=== PATIENT | female | born 1970 | race Caucasian/White ===

== ENCOUNTER 2019-11-05 12:52 | Inpatient (IN) | payer BC ==
[~2019-11-05] VITALS: Ht 162.6 cm; Wt 88.1 kg
[2019-11-05 13:05] VITALS: BP 154/90
[2019-11-05] MEDS ORDERED: VANCOMYCIN PER PHARMACY MC PRN (14:15)
[2019-11-05 14:56] LABS: HEMATOCRIT 36.6 % (36.0-47.0); HEMOGLOBIN 12.1 g/dL (12.0-15.5); RED BLOOD COUNT 3.78 x10^6/uL (3.50-5.40); RED CELL DISTRIBUTION WIDTH 13.4 % (11.5-14.5); WHITE BLOOD COUNT 6.5 x10^3/uL (4.0-11.0)
[2019-11-05] MEDS ORDERED: VANCOMYCIN 2 GM in IV NORMAL SALINE 500ML 500 ML IV ONE (15:00)
[2019-11-05 15:04] LABS: ALBUMIN 2.3 g/dL (3.4-5.0); ALBUMIN/GLOBULIN RATIO 0.5 (1.0-1.7); CALCIUM 9.7 mg/dL (8.5-10.1); GFR 59.4; POTASSIUM 3.9 mmol/L (3.5-5.1); TOTAL BILIRUBIN 0.2 mg/dL (0.2-1.0)
[2019-11-05] MEDS ORDERED: OXYC-325 PO (15:04)
[2019-11-05] MEDS ORDERED: FENO145T3 PO (15:15)
[2019-11-05] MEDS ORDERED: HYDR-2145 PO (15:43)
[2019-11-05] MEDS ORDERED: INSU200I SQ (15:43)
[2019-11-05] MEDS ORDERED: ONDANSETRON ODT 4 MG TAB.RAPDIS PO PRN (15:45)
[2019-11-05] MEDS ORDERED: DEXTROSE 50% 25 GM / 50ML DISP.SYRIN. IV PRN (15:45)
[2019-11-05] MEDS ORDERED: CRESTOR20 MG PO (15:48)
[2019-11-05] MEDS ORDERED: VERA240C2 PO (15:48)
[2019-11-05] MEDS ORDERED: ONDA4TAB12 PO (15:48)
--- NOTE | 2019-11-05 16:04 | RAD ---
Sonography of the left groin Clinical indications: Left groin abscess which is packed with gauze. FINDINGS: High-resolution sonography of the area of clinical concern of the left groin was performed. There is an area of shadowing related to the gauze packing. Otherwise no prominent fluid collection is seen. Edema is present. IMPRESSION: No prominent fluid collection is seen in the area of clinical concern. Electronically signed by: Jaiden James MD (11/05/2019 4:01 PM) [facility] [place]
[2019-11-05] MEDS: oxyCODONE/APAP 5/325 1 TAB TABLET PO PRN ×2 (16:08→22:07)
[2019-11-05 16:29] VITALS: BP 158/87
[2019-11-05] MEDS ORDERED: INSULIN LISPRO 6 UNIT SQ SCH (17:00)
[2019-11-05] MEDS: INSULIN LISPRO 300 UNITS/3 ML VIAL. SQ SCH ×2 (17:57→21:20)
[2019-11-05] MEDS ORDERED: PIPERACILLIN/TAZOBACTAM 3.375 GM in IV NORMAL SALINE 50ML 50 ML IV SCH (18:00)
[2019-11-05] MEDS ORDERED: INSU100V8 SQ (18:57)
[2019-11-05 21:00] VITALS: BP 127/77
[2019-11-05] MEDS ORDERED: NON FORMULARY ITEM (Rosuvastatin Calcium (Crestor) 20 MG) PO SCH (21:00)
[2019-11-05] MEDS: ATORVASTATIN CALCIUM 20 MG TABLET PO SCH (21:19)
[2019-11-05] MEDS: diphenhydrAMINE HCL 25 MG CAPSULE PO PRN (21:19)
[2019-11-05] MEDS: INSULIN GLARGINE SYRINGE. SQ SCH (21:23)
[2019-11-05] MEDS: MEROPENEM 1 GM in IV NORMAL SALINE 100ML 100 ML IV SCH (22:08)
[2019-11-05 23:30] VITALS: BP 136/71
[2019-11-06] MEDS: MEROPENEM 1 GM in IV NORMAL SALINE 100ML 100 ML IV SCH ×3 (05:14→21:31)
[2019-11-06 06:00] VITALS: BP 148/77
[2019-11-06] MEDS: VANCOMYCIN 1.25 GM in IV NORMAL SALINE 250ML 250 ML IV SCH ×2 (06:00→17:45)
[2019-11-06 06:29] LABS: HEMATOCRIT 34.2 % (36.0-47.0); HEMOGLOBIN 11.4 g/dL (12.0-15.5); RED BLOOD COUNT 3.53 x10^6/uL (3.50-5.40); RED CELL DISTRIBUTION WIDTH 13.6 % (11.5-14.5); WHITE BLOOD COUNT 4.5 x10^3/uL (4.0-11.0)
[2019-11-06 06:44] LABS: ALBUMIN 1.9 g/dL (3.4-5.0); ALBUMIN/GLOBULIN RATIO 0.5 (1.0-1.7); CALCIUM 8.4 mg/dL (8.5-10.1); GFR 59.4; POTASSIUM 3.2 mmol/L (3.5-5.1); TOTAL BILIRUBIN 0.2 mg/dL (0.2-1.0)
[2019-11-06] MEDS ORDERED: POTASSIUM CHLORIDE 20 MEQ TABLET.ER. PO ONE (07:30)
[2019-11-06] MEDS: hydroCHLOROthiazide 25 MG TABLET PO SCH (08:10)
[2019-11-06] MEDS: VERAPAMIL SR 120 MG TABLET.ER. PO SCH (08:11)
[2019-11-06] MEDS: MULTIVITAMIN with MINERAL TABLET. PO SCH (08:11)
[2019-11-06] MEDS: ASCORBIC ACID 500 MG TABLET PO SCH (08:11)
[2019-11-06] MEDS: FENOFIBRATE NANOCRYSTALLIZED 145 MG TABLET PO SCH (08:11)
[2019-11-06] MEDS: INSULIN LISPRO 300 UNITS/3 ML VIAL. SQ SCH ×7 (08:12→20:22)
[2019-11-06] MEDS: oxyCODONE/APAP 5/325 1 TAB TABLET PO PRN ×3 (08:16→22:07)
[2019-11-06] MEDS ORDERED: VERAPAMIL HCL PO SCH (09:00)
[2019-11-06 10:16] VITALS: BP 129/78
[2019-11-06] MEDS: diphenhydrAMINE HCL 25 MG CAPSULE PO PRN ×2 (10:33→20:18)
[2019-11-06 15:46] VITALS: BP 116/67
[2019-11-06 18:30] VITALS: BP 129/72
[2019-11-06 20:01] VITALS: BP 138/73
--- NOTE | 2019-11-06 20:06 | PN ---
DATE: 11/06/2019 SUBJECTIVE: The patient is resting, slightly propped up in bed, in no apparent respiratory distress. She is awake, alert. She denied any complaint, in particular denied any fever, chills or rigors. Her wound was seen by the wound care team and the pack team. They packed the wound this morning. Apparently, the wound was cleansed and assessed, redressed with iodoform packing, ABD pad and tape and they recommended change the dressing daily. We did actually ultrasound yesterday, which basically showed no prominent fluid collection seen in the area of clinical concern and therefore, we will continue with IV vancomycin and meropenem and hopefully switch her tomorrow to Rocephin and she can be discharged home to continue as an outpatient after placement of PICC line. PHYSICAL EXAMINATION: GENERAL: When I saw her today, she looked well and was clearly in no apparent respiratory distress. No pallor, jaundice, cyanosis or thyromegaly. No jugular venous distention. No lower limb edema. VITAL SIGNS: Her heart rate was 73, blood pressure was 129/78, temperature was 97.6, respiratory rate was 18 and oxygen saturation was 93%. The wound is covered with dressing. EXTREMITIES: There is mild surrounding erythema and induration. Her intake was 1613. No output was recorded. LABORATORY DATA: Her lab work this morning showed a white cell count 4500, hemoglobin 11, hematocrit 34, MCV 97, platelet count of 121,000. Her chemistry showed a serum sodium 137, potassium 3.2, chloride 100, bicarbonate 28, anion gap of 9, BUN 13, creatinine 1, estimated GFR was 59 mL per minute. Her glucose was 277, calcium was 8.4. Total bilirubin, AST, ALT, alkaline phosphatase were normal. Total protein was 6, albumin was 1.9. ASSESSMENT: Left groin abscess, status post incision and drainage. Other medical problems include hypertension, hyperlipidemia and type 2 diabetes mellitus. PLAN: To continue with IV vancomycin as well as meropenem. We will arrange for her to have a PICC line tomorrow. We will switch her to Rocephin and can be discharged to be treated as an outpatient. ROSIBEL MARAVILLA MD DR: ESTUARDO/trever JOB#: [id number] / [id number]
[2019-11-06] MEDS: ATORVASTATIN CALCIUM 20 MG TABLET PO SCH (20:18)
[2019-11-06] MEDS: INSULIN GLARGINE SYRINGE. SQ SCH (20:22)
[2019-11-06 22:08] VITALS: BP 130/72
[2019-11-07] MEDS: oxyCODONE/APAP 5/325 1 TAB TABLET PO PRN ×2 (04:42→13:47)
[2019-11-07] MEDS: MEROPENEM 1 GM in IV NORMAL SALINE 100ML 100 ML IV SCH ×2 (05:25→13:47)
[2019-11-07 06:17] VITALS: BP 134/78
[2019-11-07 06:30] LABS: CALCIUM 7.9 mg/dL (8.5-10.1); CREATININE 0.9 mg/dL (0.6-1.0); GFR 67.1; POTASSIUM 3.5 mmol/L (3.5-5.1)
[2019-11-07 06:35] LABS: VANC TR 10.8 mcg/mL (10.0-20.0)
[2019-11-07] MEDS: VANCOMYCIN 1.25 GM in IV NORMAL SALINE 250ML 250 ML IV SCH (06:55)
[2019-11-07] MEDS: LACTOBACILLUS RHAMNOSUS GG 1 CAPSULE. PO SCH ×2 (08:05→21:50)
[2019-11-07] MEDS: hydroCHLOROthiazide 25 MG TABLET PO SCH (08:05)
[2019-11-07] MEDS: FENOFIBRATE NANOCRYSTALLIZED 145 MG TABLET PO SCH (08:05)
[2019-11-07] MEDS: ASCORBIC ACID 500 MG TABLET PO SCH (08:06)
[2019-11-07] MEDS: VERAPAMIL SR 120 MG TABLET.ER. PO SCH (08:06)
[2019-11-07] MEDS: MULTIVITAMIN with MINERAL TABLET. PO SCH (08:06)
[2019-11-07] MEDS: INSULIN LISPRO 300 UNITS/3 ML VIAL. SQ SCH ×7 (08:11→21:55)
[2019-11-07 10:40] VITALS: BP 128/75
[2019-11-07 14:32] VITALS: BP 138/76
[2019-11-07] MEDS ORDERED: IOHEXOL 300 MG/ML 75 ML VIAL. IV ONE (15:00)
[2019-11-07] MEDS ORDERED: CONTRAST GIVEN MC PRN (15:00)
[2019-11-07] MEDS: diphenhydrAMINE HCL 25 MG CAPSULE PO PRN (17:03)
--- NOTE | 2019-11-07 17:59 | RAD ---
CT study of the pelvis with contrast Clinical indications: Abscess of the left groin. TECHNIQUE: After IV infusion of 75 cc of Omnipaque 300, helical CT scanning of the pelvis was performed. No GI contrast was administered. This may decrease the sensitivity to detect GI tract pathology. PQRS compliance Statement One or more of the following individualized dose reduction techniques were utilized for this study: 1. Automated exposure control 2. Adjustment of the mA and/or kV according to patient size 3. Use of iterative reconstruction technique COMPARISON: September 21, 2011. FINDINGS: There is focal round area of subcutaneous soft tissue thickening measuring about 5.5 cm in greatest dimension within the left groin. Within the superficial area of this soft tissue thickening, radiopaque gauze is seen within a superficial wound. There is no liquefaction in this area and therefore no abscess is seen. This is consistent with inflammatory mass given the patient's history. Certainly, a soft tissue neoplasm cannot be excluded. There is upper thigh subcutaneous soft tissue edema present. No round fluid collection with peripheral rim enhancement is seen and therefore no abscess is evident. There are some mild reactive left inguinal lymph nodes present. There is subcutaneous soft tissue edema of the anterior abdominal wall of the pelvis. This could represent cellulitis or be related to anasarca if there is a history of CHF or fluid overload. No lytic process is seen. Therefore no osteomyelitis is seen. No prominent left hip joint effusion is seen. The urinary bladder wall is smooth. There is a cyst of the left ovary which measures 3.4 cm. No bowel wall thickening or pericolonic inflammatory change is seen. Mild sigmoid diverticulosis is seen without diverticulitis. The appendix is visualized and is normal. No obstructive bowel pattern is evident. No free air or free fluid or mesenteric edema is seen within the pelvis. There is a supraumbilical hernia containing only fat measuring 4.3 cm in size. IMPRESSION: 5.5 cm inflammatory mass of the left groin in association with superficial gauze packing. No liquefaction or abscess is seen here. There is soft tissue edema circumferentially involving the upper left thigh which could be due to cellulitis. There is anterior abdominal wall inflammation which could be due to cellulitis or anasarca if this history of CHF or fluid overload. 3.4 cm left ovarian cyst. Reactive left groin lymphadenopathy. Supraumbilical midline abdominal hernia containing only fat. Electronically signed by: Jaiden James MD (11/07/2019 5:55 PM) [id number]
[2019-11-07] MEDS ORDERED: ACETAMINOPHEN 325 MG TABLET PO PRN (18:45)
[2019-11-07 19:30] VITALS: BP 111/71
[2019-11-07] MEDS: ATORVASTATIN CALCIUM 20 MG TABLET PO SCH (21:50)
[2019-11-07] MEDS: INSULIN GLARGINE SYRINGE. SQ SCH (21:56)
[2019-11-07 22:20] VITALS: BP 116/78
--- NOTE | 2019-11-08 00:46 | PN ---
DATE: SUBJECTIVE: The patient is a 49-year-old female patient who was seen originally at [facility] Emergency Room with an abscess in her left groin that was incised and drained. The culture was grown gram-positive cocci in pairs identified as beta hemolytic streptococci group B. She is allergic to PENICILLIN and therefore we started her on IV meropenem and vancomycin. She has had her PICC line placed and we will switch her to Rocephin and she can be discharged tomorrow home to come as an outpatient on a daily basis together with obviously change the daily dressing and packing. PHYSICAL EXAMINATION: GENERAL: When I saw her today, she looked well and was clearly in no apparent respiratory distress. No pallor, jaundice, cyanosis or thyromegaly. No jugular venous distention. No limb edema. VITAL SIGNS: Her heart rate was 85, blood pressure 138/76, temperature was 98.1, respiratory rate was 18 and oxygen saturation was 95% on room air. HEAD, EYES, EARS, NOSE AND THROAT: Showed normocephalic, atraumatic. NECK: Supple. HEART: Showed normal first and second heart sounds. No gallop or murmur. CHEST: Clear to auscultation. No crepitation or rhonchi. ABDOMEN: Distended, soft, nontender. No guarding or rigidity. No organomegaly. All hernial orifice intact. Bowel sounds normal. NEUROLOGIC: She is awake, alert, responding appropriately. All cranial nerves intact. She moves extremities without difficulty. She ambulates without assistance or assistive devices. Her intake was 1630. No output was recorded. LABORATORY DATA: Her lab work showed a white cell count of 4500, hemoglobin 11.4, hematocrit 34, MCV 97 and platelet count of 121,000. Her chemistry this morning showed a serum sodium of 139, potassium 3.5, chloride 103, bicarbonate 30, anion gap of 6, BUN 12, creatinine 0.9, estimated GFR was 67 mL per minute. Her glucose was 201, calcium was 7.9. ASSESSMENT: Left groin abscess, status post incision and drainage. The culture grew beta-hemolytic Streptococcus group B for which we will switch her now to IV Rocephin after establishment of a PICC line. OTHER MEDICAL PROBLEMS: Include: A. Hypertension. B. Hyperlipidemia. C. Type 2 diabetes mellitus. I will repeat her lab works tomorrow and if she has no untoward side effects from the Rocephin, she can come as an outpatient on a daily basis for 10 days. ROSIBEL MARAVILLA MD DR: ESTUARDO/trever JOB#: [id number] / [id number]
[2019-11-08 05:33] VITALS: BP 149/75
[2019-11-08 07:02] LABS: HEMATOCRIT 35.6 % (36.0-47.0); HEMOGLOBIN 11.8 g/dL (12.0-15.5); RED BLOOD COUNT 3.67 x10^6/uL (3.50-5.40); WHITE BLOOD COUNT 5.3 x10^3/uL (4.0-11.0)
[2019-11-08 07:21] LABS: ALBUMIN/GLOBULIN RATIO 0.5 (1.0-1.7); CALCIUM 8.4 mg/dL (8.5-10.1); CREATININE 0.8 mg/dL (0.6-1.0); GFR 76.9; POTASSIUM 3.7 mmol/L (3.5-5.1); TOTAL BILIRUBIN 0.1 mg/dL (0.2-1.0); TOTAL PROTEIN 5.9 g/dL (6.4-8.2)
[2019-11-08] MEDS: INSULIN LISPRO 300 UNITS/3 ML VIAL. SQ SCH ×4 (08:21→11:54)
[2019-11-08] MEDS: hydroCHLOROthiazide 25 MG TABLET PO SCH (08:23)
[2019-11-08] MEDS: ASCORBIC ACID 500 MG TABLET PO SCH (08:23)
[2019-11-08] MEDS: MULTIVITAMIN with MINERAL TABLET. PO SCH (08:23)
[2019-11-08] MEDS: LACTOBACILLUS RHAMNOSUS GG 1 CAPSULE. PO SCH (08:23)
[2019-11-08] MEDS: VERAPAMIL SR 120 MG TABLET.ER. PO SCH (08:24)
[2019-11-08] MEDS: FENOFIBRATE NANOCRYSTALLIZED 145 MG TABLET PO SCH (08:57)
[2019-11-08 11:42] VITALS: BP 142/77
[2019-11-08] MEDS ORDERED: CEFT2FRO2 IV (14:11)
--- NOTE | 2019-11-08 15:17 | DS ---
DATE OF DISCHARGE: 11/08/2019 HOSPITAL COURSE: The patient is a 49-year-old female patient. She was originally seen at [facility] and was diagnosed with left groin abscess that was incised and drained. The swabs were sent for culture and sensitivity and did not grow beta hemolytic streptococci group B. She is allergic to PENICILLIN; although she said that she was very young when she was told that she is allergic and she might have hives, but she is not sure. In any case, I started her on IV meropenem and vancomycin. She has had the PICC line placed successfully and we did switch her to Rocephin. She received her first dose yesterday without any problem. She will have the second dose today, Rocephin and will be discharged home to come as an outpatient for her Rocephin injection on a daily basis for a total of 10 days and she will also have daily dressing changes and packing of her wound. PHYSICAL EXAMINATION: GENERAL: When I saw her today, she was resting slightly propped up in bed, in no apparent respiratory distress. There were no pallor, jaundice, cyanosis, or thyromegaly. No jugular venous distension. No limb edema. VITAL SIGNS: Her heart rate was 92, blood pressure 142/77, temperature was 98.3, respiratory rate was 18 and oxygen saturation was 96%. HEAD, EYES, EARS, NOSE AND THROAT: Normocephalic, atraumatic. NECK: Supple. HEART: Showed normal first and second heart sounds. No gallop, rub or murmur. CHEST: Clear to auscultation. No crepitation or rhonchi. ABDOMEN: Distended, soft, nontender. NEUROLOGIC: She is awake, alert, responding appropriately. All cranial nerves intact. EXTREMITIES: She moves extremities without difficulty. She ambulates without assistance or assistive devices. Her intake was 1500, no output was recorded. LABORATORY DATA: This morning showed a serum sodium 142, potassium 3.7, chloride 104, bicarbonate 31, anion gap of 7, BUN 13, creatinine 0.8, estimated GFR was 77 mL per minute. Her glucose was 204, calcium was 8.4. Total bilirubin, AST, ALT, alkaline phosphatase were normal. Total protein was 5.9, albumin 2. Her white cell count was 5300, hemoglobin 11.8, hematocrit 35, MCV 97 and platelet count of 127,000. DISCHARGE MEDICATIONS: She was discharged home; to continue on: 1. Rocephin 2 g IV daily. 2. ____ fenofibrate 145 mg once a day. 3. Hydrochlorothiazide 25 mg once a day. 4. Lantus insulin 35 units subcutaneously at bedtime. 5. She is on insulin lispro 6 units before meals. 6. Ondansetron 4 mg every 8 hours. 7. Oxycodone 5/325 one tablet every 4 hours. 8. Crestor 20 mg at bedtime. 9. Verapamil 240 mg once a day. FINAL DISCHARGE DIAGNOSES: 1. Left groin abscess, status post incision and drainage with growth of beta hemolytic streptococci. 2. Type 2 diabetes mellitus. 3. Hypertension. 4. Hyperlipidemia. ROSIBEL MARAVILLA MD DR: ESTUARDO/trever JOB#: [id number] / [id number]
--- NOTE | 2019-11-08 15:18 | HP ---
ADMIT DATE: 11/05/2019 HISTORY OF PRESENT ILLNESS: The patient is a 49-year-old female patient who basically complained of what seemed to be like a boil in her left groin area that started on 10/30/2019. She was seen on in the Emergency Room of [facility] where she was found to have an abscess in the left groin that was incised and drained and the patient came back to our Emergency Room complaining of continued pain, swelling continues. She was admitted and we did start her on IV meropenem and linezolid. We did contact the [facility] and the culture has grown gram-positive cocci in pairs, identified as beta hemolytic Streptococcus group B. The patient was continued on IV antibiotic with a plan to put a PICC line, treated as an outpatient. PAST MEDICAL HISTORY: Significant for type 2 diabetes mellitus, hypertension, hyperlipidemia, and osteoarthritis. PAST SURGICAL HISTORY: Significant for sinus surgery x 2, cholecystectomy, . ALLERGIES: SHE IS ALLERGIC TO PENICILLIN AND METFORMIN. MEDICATIONS: She is currently on following medications: She is on fenofibrate 145 mg once a day, Crestor 20 mg at bedtime, verapamil 240 mg daily, oxycodone/APAP 5/325 one tablet every 4 hours, hydrochlorothiazide 25 mg once a day, ondansetron 8 mg every 8 hours, Lantus insulin 35 units at bedtime and Humalog insulin 6 units before meals. FAMILY HISTORY: She has 1 younger brother, still alive, at 44 years old. One sister, younger and 36-year-old, still alive. Her father is alive at age of 70, has myocardial infarction x 2, has PCI with stent deployment, peripheral vascular disease. Her mother is still alive and healthy. SOCIAL HISTORY: She is , has 1 daughter. She never smoked, does not drink alcohol or use any recreational drugs. 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 REVIEW OF SYSTEMS: As per history of present illness. PHYSICAL EXAMINATION: GENERAL: On arrival, she looked well and was clearly in no apparent respiratory distress. No pallor, jaundice, cyanosis or thyromegaly. No jugular venous distention. No limb edema. VITAL SIGNS: Her heart rate was 86, blood pressure 154/90, temperature was 98.9, respiratory rate was 20, and oxygen saturation was 95%. HEAD, EYES, EARS, NOSE AND THROAT: Normocephalic, atraumatic. NECK: Supple. CARDIAC: Normal first and second heart sounds. No gallop or murmur. CHEST: Clear to auscultation. No crepitation or rhonchi. ABDOMEN: Distended, soft, nontender. NEUROLOGIC: She is awake, alert, responding appropriately. All cranial nerves are intact. EXTREMITIES: She moves extremities without difficulty. Examination of the left groin area showed that she has large indurated area. The abscess was drained and the wound was packed with iodoform gauze. LABORATORY DATA: On admission showed a white cell count 6500, hemoglobin 12, hematocrit 36, MCV 97 and platelet count of 132,000. Her chemistry showed a serum sodium 135, potassium 3.9, chloride 97, bicarbonate 30, anion gap of 8, BUN 15, creatinine 1, estimated GFR was 59 mL per minute. Her glucose was 321, calcium was 9.7. Total bilirubin, AST, ALT, alkaline phosphatase were normal. Total protein was 7, albumin was 2.3. We did order ultrasound of the left groin area, which showed that there is an area of shadowing related to the gauze packing; otherwise, no prominent fluid collection is seen, edema is present. ASSESSMENT AND PLAN: The patient was started basically on meropenem and Zyvox as SHE IS ALLERGIC TO PENICILLIN. We will contact the [facility] regarding the result of the culture and sensitivity and we will adjust antibiotic accordingly. ROSIBEL MARAVILLA MD DR: ESTUARDO/trever JOB#: [id number] / [id number]
== END 2019-11-08 15:55 | disposition home or self-care (01) | DRG 603 ==
LOC: ICU 12:52 → 1 SOUTH 12:53
PROVIDERS: ADMIT Internal Medicine; ATTEND Internal Medicine
PROC: 05HY33Z Insertion of Infusion Device into Upper Vein, Percutaneous Approach (ICD-10-PCS; principal; 2019-11-06)
DX: L02.214 Cutaneous abscess of groin (principal); E11.9 Type 2 diabetes mellitus without complications; E78.5 Hyperlipidemia, unspecified; I10 Essential (primary) hypertension; Z82.49 Family history of ischemic heart disease and other diseases of the circulatory system; Z88.0 Allergy status to penicillin; M19.90 Unspecified osteoarthritis, unspecified site; Z88.8 Allergy status to other drugs, medicaments and biological substances
CPT/HCPCS: 36415; 72193; 76881; 80048; 80053; 80202; 82947; 85027; 87070; J0696; J1815; J2185; J3370; J7040; J7050; Q0163; Q9967

== ENCOUNTER 2021-01-23 20:51 | Emergency (ER) | payer BC ==
[~2021-01-23] VITALS: Ht 162.6 cm; Wt 89.1 kg
[~2021-01-23 20:51] MED LIST: CEFT2FRO2 IV; CRESTOR20 MG PO; FENO145T3 PO; HYDR-2145 PO; INSU100V8 SQ; INSU200I SQ; ONDA4TAB12 PO; OXYC-325 PO; VERA240C2 PO
[2021-01-23] MEDS ORDERED: ONDANSETRON PF 4 MG/2 ML VIAL. ONE (21:06)
[2021-01-23] MEDS ORDERED: ONDANSETRON PF 4 MG/2 ML VIAL. IVP ONE (21:30)
[2021-01-23 21:32] LABS: HEMATOCRIT 37.9 % (36.0-47.0); HEMOGLOBIN 12.8 g/dL (12.0-15.5); RED BLOOD COUNT 3.95 x10^6/uL (3.50-5.40); RED CELL DISTRIBUTION WIDTH 13.2 % (11.5-14.5); WHITE BLOOD COUNT 5.4 x10^3/uL (4.0-11.0)
[2021-01-23 21:34] LABS: CALCIUM 8.9 mg/dL (8.5-10.1); CREATININE 0.8 mg/dL (0.6-1.0); GFR 76.6; POTASSIUM 3.3 mmol/L (3.5-5.1)
[2021-01-23 21:40] LABS: ALBUMIN 2.6 g/dL (3.4-5.0); ALBUMIN/GLOBULIN RATIO 0.5 (1.0-1.7); TOTAL BILIRUBIN 0.6 mg/dL (0.2-1.0); TOTAL PROTEIN 7.5 g/dL (6.4-8.2)
--- NOTE | 2021-01-23 21:49 | RAD ---
PQRS Compliance Statement: One or more of the following individualized dose reduction techniques were utilized for this examinat ion: 1. Automated exposure control 2. Adjustment of the mA and/or kV according to patient size 3. Use of iterative reconstruction technique CT ABDOMEN+PELVIS WO Clinical Indication: Reason: left flank pain / Spl. Instructions: / History: Comparison: CT abdomen and pelvis with contrast September 21, 2011. CT pelvis with contrast 11/07/2019. Technique: Helical CT imaging of the abdomen and pelvis is performed without IV or oral contrast. Findings: Lung bases are clear. Cardiac size normal. The liver, spleen, pancreas, and adrenal glands are normal. Cholecystectomy. Abdominal aorta is cheko l caliber, minimal atherosclerotic calcification. The right kidney is normal. There is left perinephric stranding. There is mild left hydroureteronephr osis and periureteral stranding. The ureter is dilated to the ureterovesicular junction. A ureteral c alculus is not seen. A calculus in the urinary bladder is not identified. The stomach is unremarkable. There is a moderate-sized fat-containing supraumbilical hernia. There is no dilated small bowel. The appendix is normal. There is no colon wall thickening. No abdominal marco a opathy or free fluid. No urinary bladder wall thickening is seen. The uterus is anteverted. Small left ovary cyst. No pelvi c free fluid. No acute bone abnormality. Small sclerotic densities of the pelvis are stable. IMPRESSION: There is mild left hydroureteronephrosis and moderate perinephric and periureteral stranding. A urete ral calculus is not identified. Considerations include a recently passed calculus versus urinary trac t infection. Electronically signed by: Pérez Guerrier MD (01/23/2021 9:47 PM) [facility]
[2021-01-23 23:21] LABS: CLARITY,URINE HAZY; COLOR,URINE STRAW
[2021-01-23 23:22] LABS: BACTERIA,URINE MOD /HPF (0-FEW); BILIRUBIN,URINE NEG (NEG); GLUCOSE,URINE 500 mg/dL (NEG); NITRITE,URINE NEG (NEG); SQUAMOUS EPITHELIAL CELL,UR FEW /LPF; UROBILINOGEN,URINE 0.2 mg/dL (0.2 mg/dL)
[2021-01-23 23:23] LABS: YEAST,URINE PRESENT /HPF
[2021-01-23] MEDS ORDERED: KETOROLAC 15 MG/ML VIAL. IVP ONE (23:30)
[2021-01-23] MEDS ORDERED: CIPROFLOXACIN HCL 500 MG TABLET PO ONE (23:30)
[2021-01-23] MEDS ORDERED: MORPHINE SULFATE 4 MG/ML DISP.SYRIN. IV ONE (23:30)
[2021-01-23] MEDS ORDERED: HYDR-2155 PO (23:34)
[2021-01-23] MEDS ORDERED: CIPR500T94 PO ×2 (23:34→23:35)
--- NOTE | 2021-01-23 23:36 | PHYS DOC ---
Past History Past Medical History: Diabetes, Hypertension Past Surgical History: Cholecystectomy, , Other Additional Past Surgical Histo: ABSCESS ON LEG SX Alcohol Use: None Adult General Chief Complaint Chief Complaint: ABDOMINAL PAIN HPI HPI Patient is a 50-year-old female who presents to the emergency department with a chief complaint of left-sided flank pain for approximately 2 days, 7 out of 10, sharp in nature with some nausea but no vomiting. Denies any recent traumas, travel, fevers, chest pain, shortness of breath, other abdominal pain, dysuria, hematuria, blood in the stool or diarrhea. Denies any Covid/flu/cold symptoms. States he has been able to drink some fluids but does have a decreased appetite. States he had anything like this before. Denies any known ill contacts. States she has had urinary tract infections in the past. Review of Systems Review of Systems Review of systems otherwise unremarkable except noted in HPI Current Medications Current Medications Current Medications Medications (Trade) Dose Ordered Sig/Deshawn Start Time Stop Time Status Last Admin Dose Admin Fentanyl Citrate (Fentanyl 2ml Vial) 50 mcg 1X ONCE 01/23/21 21:00 01/23/21 21:01 DC 01/23/21 21:29 50 MCG Ondansetron HCl (Zofran) 4 mg 1X ONCE 01/23/21 21:30 01/23/21 21:31 DC 01/23/21 21:29 4 MG Allergies Allergies Allergies Coded Allergies Type Severity Reaction Last Updated Verified lisinopril Allergy Severe FACIAL SWELLING 11/05/19 Yes Penicillins Allergy Unknown 11/05/19 Yes metformin Allergy Unknown 11/05/19 Yes Physical Exam Physical Exam Constitutional: Well developed, well nourished, no acute distress, non-toxic appearance. [] HENT: Normocephalic, atraumatic, bilateral external ears normal, oropharynx moist, no oral exudates, nose normal. [] Eyes: conjunctiva normal, no discharge. [] Neck: Normal range of motion, no tenderness, supple, no stridor. [] Cardiovascular:Heart rate regular rhythm, no murmur [] Lungs & Thorax: Bilateral breath sounds clear to auscultation [] Abdomen: Bowel sounds normal, soft, no tenderness, no masses, no pulsatile masses. [] Skin: Warm, dry, no erythema, no rash. [] Back: Left CVA tenderness. [] Extremities: No tenderness, no cyanosis, no clubbing, ROM intact, no edema. [] Neurologic: Alert and oriented X 3, no focal deficits noted. [] Psychologic: Affect normal, judgement normal, mood normal. [] Current Patient Data Vital Signs Vital Signs Date Time Temp Pulse Resp B/P (MAP) Pulse Ox O2 Delivery O2 Flow Rate FiO2 01/23/21 21:10 98.1 90 18 181/103 (129) 97 Room Air Lab Results Laboratory Tests Test 01/23/21 21:13 01/23/21 22:25 01/23/21 22:31 White Blood Count 5.4 x10^3/uL (4.0-11.0) Red Blood Count 3.95 x10^6/uL (3.50-5.40) Hemoglobin 12.8 g/dL (12.0-15.5) Hematocrit 37.9 % (36.0-47.0) Mean Corpuscular Volume 96 fL (79-100) Mean Corpuscular Hemoglobin 32 pg (25-35) Mean Corpuscular Hemoglobin Concent 34 g/dL (31-37) Red Cell Distribution Width 13.2 % (11.5-14.5) Platelet Count 92 x10^3/uL (140-400) L Sodium Level 140 mmol/L (136-145) Potassium Level 3.3 mmol/L (3.5-5.1) L Chloride Level 99 mmol/L (98-107) Carbon Dioxide Level 30 mmol/L (21-32) Anion Gap 11 (6-14) Blood Urea Nitrogen 10 mg/dL (7-20) Creatinine 0.8 mg/dL (0.6-1.0) Estimated GFR (Cockcroft-Gault) 76.6 BUN/Creatinine Ratio 13 (6-20) Glucose Level 375 mg/dL (70-99) H Calcium Level 8.9 mg/dL (8.5-10.1) Total Bilirubin 0.6 mg/dL (0.2-1.0) Aspartate Amino Transferase (AST) 13 U/L (15-37) L Alanine Aminotransferase (ALT) 21 U/L (14-59) Alkaline Phosphatase 136 U/L (46-116) H Total Protein 7.5 g/dL (6.4-8.2) Albumin 2.6 g/dL (3.4-5.0) L Albumin/Globulin Ratio 0.5 (1.0-1.7) L Lipase 108 U/L (73-393) Urine Collection Type Unknown Urine Color Straw Urine Clarity Hazy Urine pH 7.0 Urine Specific [place] 1.015 Urine Protein >100 mg/dl (NEG-TRACE) Urine Glucose (UA) 500 mg/dL (NEG) Urine Ketones (Stick) Neg mg/dL (NEG) Urine Blood Mod (NEG) Urine Nitrite Neg (NEG) Urine Bilirubin Neg (NEG) Urine Urobilinogen Dipstick 0.2 mg/dL (0.2 mg/dL) Urine Leukocyte Esterase Trace (NEG) Urine RBC 6-10 /HPF (0-2) Urine WBC 5-10 /HPF (0-4) Urine Squamous Epithelial Cells Few /LPF Urine Bacteria Mod /HPF (0-FEW) Urine Yeast Present /HPF POC Urine HCG, Qualitative hcg negative (Negative) EKG EKG [] Radiology/Procedures Radiology/Procedures [] Heart Score C/O Chest Pain: No Risk Factors: Risk Factors: DM, Current or recent (<one month) smoker, HTN, HLP, family history of CAD, obesity. Risk Scores: Risk Factors: DM, Current or recent (<one month) smoker, HTN, HLP, family history of CAD, obesity. Course & Med Decision Making Course & Med Decision Making Patient is a 50-year-old female presents with left-sided flank pain for a couple of days associated with nausea Vital signs notable for hypertension. Physical exam noted above. Patient placed on the monitor. Given IV pain medicine. Laboratory analysis not concerning. Urinalysis notable for bacteria and leukocyte esterase with some blood. CT notable for mild left hydroureteronephrosis and perinephric and periureteral stranding he does have a possible passed stone versus UTI. Given patient's urinary frequency, urinalysis she was started on antibiotics in the emergency department. Given some pain medication for home. Advised to follow-up with primary care first thing Tuesday morning. Gave return precautions to the ED. Patient grateful, verbalized understanding and agreed with plan of discharge. [] Dragon Disclaimer Dragon Disclaimer This electronic medical record was generated, in whole or in part, using a voice recognition dictation system. Departure Departure: Impression: Primary Impression: Flank pain Additional Impressions: Pyelonephritis Hydroureteronephrosis Disposition: 01 HOME / SELF CARE / HOMELESS Condition: GOOD Referrals: ELIANA VERA (PCP) Patient Instructions: Pyelonephritis, Adult, [id number] Additional Instructions: Please read all of the attached information very carefully. Your CT scan and urinalysis are suggestive of either a past kidney stone or a kidney infection. You are started on antibiotics in the emergency department, please take all as prescribed. You are given pain medication for home, please take as prescribed in association with appropriate dosing of ibuprofen as discussed. Please drink plenty of fluids. Please follow-up with your primary care physician on Tuesday to discuss your ED visit and set up a follow-up visit. Please come back to the emergency department immediately with new or concerning symptoms as discussed.. Scripts Ciprofloxacin Hcl (CIPRO) 500 Mg Tablet 1 TAB PO BID for uti for 7 Days, #13 TAB 0 Refills Prov: CADENCE GONZALEZ MD 01/23/21 Hydrocodone Bit/Acetaminophen (HYDROCODONE-APAP 5-325 ) 1 Each Tablet 1 TAB PO PRN Q6HRS PRN for PAIN for 3 Days, #12 TAB 0 Refills Prov: CADENCE GONZALEZ MD 01/23/21 Ciprofloxacin Hcl (CIPRO) 500 Mg Tablet 1 TAB PO BID for UTI for 7 Days, #13 TAB 0 Refills Prov: CADENCE GONZALEZ MD 01/23/21 Problem Qualifiers CADENCE GONZALEZ MD January 23, 2021 23:36
[2021-01-24] MEDS ORDERED: ONDANSETRON PF 4 MG/2 ML VIAL. IVP ONE
[2021-01-24 00:04] VITALS: BP 159/89
== END 2021-01-24 00:04 | disposition home or self-care (01) ==
LOC: ER 20:51
DX: N12 Tubulo-interstitial nephritis, not specified as acute or chronic (principal); N13.30 Unspecified hydronephrosis; I10 Essential (primary) hypertension; E11.9 Type 2 diabetes mellitus without complications; Z88.0 Allergy status to penicillin; Z88.8 Allergy status to other drugs, medicaments and biological substances; Z90.49 Acquired absence of other specified parts of digestive tract
CPT/HCPCS: 36415; 74176; 80053; 81001; 81025; 83690; 85027; 87086; 96374; 96375; 96376; 99284; J1885; J2270; J2405; J3010

== ENCOUNTER 2021-01-26 20:26 | Emergency (ER) | payer BC ==
[~2021-01-26] VITALS: Ht 162.6 cm; Wt 82.0 kg
[~2021-01-26 20:26] MED LIST changes: +CIPR500T94 PO; +HYDR-2155 PO
--- NOTE | 2021-01-26 20:44 | PHYS DOC ---
Past History Past Medical History: Diabetes, Hypertension Past Surgical History: Cholecystectomy, , Other Additional Past Surgical Histo: ABSCESS ON LEG SX Alcohol Use: None Adult General Chief Complaint Chief Complaint: ITCHING HPI HPI Patient is a 50-year-old female presenting for allergic reaction. She was seen here 4 days ago and diagnosed with UTI. She was given ciprofloxacin antibiotic and pain medication on discharge. Reports she has never taken ciprofloxacin in the past, site she started developing allergic reaction, skin erythema and itching without airway involvement or other concerning signs indicating potential anaphylaxis. She reports the symptoms started approximately 48 hours after taking initial antibiotic. She has not taken this antibiotic since. She has been utilizing Benadryl sparingly while at home with improvement in symptoms but persistent itching of skin concerned her prompting her to come in for evaluation. She has no history of anaphylaxis in the past, has never been intubated. She has no fever, airway swelling/difficulty swallowing, chest pain, shortness of breath Review of Systems Review of Systems Fourteen body systems of review of systems have been reviewed. See HPI for pertinent positives and negative responses, other calabrese all other systems are negative, non-pertinent or non-contributory Allergies Allergies Allergies Coded Allergies Type Severity Reaction Last Updated Verified lisinopril Allergy Severe FACIAL SWELLING 11/05/19 Yes Penicillins Allergy Unknown 11/05/19 Yes metformin Allergy Unknown 11/05/19 Yes Physical Exam Physical Exam Constitutional: Well developed, well nourished, no acute distress, non-toxic appearance. HENT: Normocephalic, atraumatic, bilateral external ears normal, oropharynx moist, no oral exudates, nose normal. Airway patent, tolerating secretions well, no concerning signs or symptoms of impending airway failure Eyes: PERRLA, EOMI, conjunctiva normal, no discharge. Neck: Normal range of motion, no tenderness, supple, no stridor. Cardiovascular: Heart rate regular, sinus rhythm, no murmurs rubs or gallops Lungs & Thorax: Bilateral breath sounds clear to auscultation Abdomen: Bowel sounds normal, soft, no tenderness, no masses, no pulsatile masses. Nonsurgical abdomen, no peritoneal signs Skin: Warm, dry, patient's bilateral upper extremities and anterior chest erythematous with slight hives and uticarial appearance with dermatographism present Back: No tenderness, no CVA tenderness. Extremities: No tenderness, no cyanosis, no clubbing, ROM intact, no edema. Neurologic: Alert and oriented X 3, grossly normal motor & sensory function, no focal deficits noted. Psychologic: Affect normal, judgement normal, mood normal. Current Patient Data Vital Signs Vital Signs Date Time Temp Pulse Resp B/P (MAP) Pulse Ox O2 Delivery O2 Flow Rate FiO2 01/26/21 20:52 98.0 90 18 149/86 (107) 98 Room Air Vital Signs Date Time Temp Pulse Resp B/P (MAP) Pulse Ox O2 Delivery O2 Flow Rate FiO2 01/26/21 21:00 75 130/83 (99) 94 Room Air 01/26/21 20:52 98.0 18 EKG EKG [] Radiology/Procedures Radiology/Procedures [] Heart Score C/O Chest Pain: No Risk Factors: Risk Factors: DM, Current or recent (<one month) smoker, HTN, HLP, family history of CAD, obesity. Risk Scores: Risk Factors: DM, Current or recent (<one month) smoker, HTN, HLP, family history of CAD, obesity. Course & Med Decision Making Course & Med Decision Making Vital signs stable, HPI and physical exam concerning for likely medication reaction from recently prescribed ciprofloxacin Prior work-up performed, patient needs to be on antibiotic and joint decision was made to proceed with cephalexin for which she tolerated well while in ER setting and new prescription written For patient symptoms, joint decision was made to administer H2 antagonists and steroid shot. I did disclose given that she is diabetic with history of poorly controlled diabetes her glucose control might be poor and so, close monitoring and outpatient follow-up is advised Patient has good access to care and is established with PCP locally. She states she can be seen in upcoming 48 hours for repeat evaluation which I feel is appropriate Strict return precautions discussed at length with good understanding by patient, all questions and concerns addressed prior to ER departure Sally Disclaimer Dragon Disclaimer This electronic medical record was generated, in whole or in part, using a voice recognition dictation system. Departure Departure: Impression: Primary Impression: Allergic reaction caused by a drug Additional Impression: UTI (urinary tract infection) Disposition: HOME / SELF CARE / HOMELESS Condition: STABLE Referrals: ELIANA VERA (PCP) Additional Instructions: As discussed prior to your departure, your vital signs and physical exam was nonconcerning for emergent or surgical issues. As mention, you are likely experiencing a negative side effect to the ciprofloxacin antibiotic recently given to you for your urinary tract infection. You did well by stopping this medication and taking Benadryl as needed. We have given you an additional acid yuri and steroid shot while in ER that should continue to improve your symptoms. As discussed, the steroid shot will likely increase your blood sugar so be sure to check this and intervene appropriately. We discussed alternative antibiotics to give you and joint decision was made to administer Keflex/cephal exin for which he tolerated well in the ER setting. Please continue to take this as prescribed to completion. As mention, you need to call your primary care physician in the morning to review ER visit today and discuss need for close outpatient follow-up to ensure continued symptomatic resolution in upcoming 72 hours. If any concerning signs or symptoms present prior to outpatient follow-up please do not hesitate to come back for repeat evaluation. It was a pleasure to take care of you and I wish you the best going forward Scripts Cephalexin (CEPHALEXIN) 500 Mg Tablet 2 TAB PO BID for uti for 7 Days, #28 TAB Prov: LINDA SOUZA DO 01/26/21 Problem Qualifiers LINDA SOUZA DO January 26, 2021 20:44
[2021-01-26] MEDS ORDERED: CEPH500T PO (20:56)
[2021-01-26 21:00] VITALS: BP 130/83
[2021-01-26] MEDS ORDERED: methylPREDNISolone ACETATE 40 MG/ML VIAL. IM ONE (21:00)
[2021-01-26] MEDS ORDERED: CEPHALEXIN 250 MG CAPSULE PO ONE (21:00)
[2021-01-26] MEDS ORDERED: FAMOTIDINE 20 MG TABLET PO ONE (21:00)
== END 2021-01-26 21:24 | disposition home or self-care (01) ==
LOC: ER 20:26
DX: L29.9 Pruritus, unspecified (principal); T36.8X5A Adverse effect of other systemic antibiotics, initial encounter; N39.0 Urinary tract infection, site not specified; E11.9 Type 2 diabetes mellitus without complications; I10 Essential (primary) hypertension; Z90.49 Acquired absence of other specified parts of digestive tract; Z98.890 Other specified postprocedural states; Z88.0 Allergy status to penicillin; Z88.8 Allergy status to other drugs, medicaments and biological substances; Y92.89 Other specified places as the place of occurrence of the external cause
CPT/HCPCS: 96372; 99283; J1030

== ENCOUNTER 2021-04-20 18:13 | Emergency (ER) | payer SELFPAY ==
[~2021-04-20] VITALS: Ht 162.6 cm; Wt 81.0 kg
[~2021-04-20 18:13] MED LIST changes: +CEPH500T PO
[2021-04-20] MEDS ORDERED: IV NORMAL SALINE 1,000ML 1,000 ML IV ONE (18:45)
[2021-04-20] MEDS ORDERED: MECLIZINE 12.5 MG TABLET. PO ONE (19:00)
[2021-04-20] MEDS ORDERED: DEXAMETHASONE SOD PHOS 10 MG/ML VIAL. IVP ONE (19:00)
[2021-04-20] MEDS ORDERED: ONDANSETRON PF 4 MG/2 ML VIAL. IVP ONE (19:00)
--- NOTE | 2021-04-20 19:07 | PHYS DOC ---
Past History Past Medical History: Diabetes, Hypertension Past Surgical History: Cholecystectomy, Additional Past Surgical Histo: ABSCESS ON LEG SX Smoking: Non-smoker Alcohol Use: None Drug Use: None General Adult EDM: Chief Complaint: DIZZY/LIGHT HEADED HPI: HPI: 51-year-old female presents via EMS with report of episode of cold sweat, dizziness, nausea, and shortness of breath which occurred while patient was at work sitting. Denies chest pain or palpitations. Reports associated diaphoresis. Patient reports room spinning sensation. Review of Systems: Review of Systems: Constitutional: Denies fever or chills Eyes: Denies redness or eye pain HENT: Reports nasal congestion; denies sore throat Respiratory: Denies cough; reports shortness of breath Cardiovascular: Denies chest pain or palpitations GI: Denies abdominal pain or vomiting; reports nausea : Denies dysuria or hematuria Musculoskeletal: Denies back pain or joint pain Integument: Denies rash or skin lesions Neurologic: Denies headache, focal weakness or sensory changes; reports dizziness/room spinning sensation Complete systems were reviewed and found to be within normal limits, except as documented in this note. Current Medications: Current Meds: Current Medications Medications (Trade) Dose Ordered Sig/Deshawn Start Time Stop Time Status Last Admin Dose Admin Dexamethasone Sodium Phosphate (Decadron) 10 mg 1X ONCE 04/20/21 19:00 04/20/21 19:01 DC Meclizine HCl (Antivert) 25 mg 1X ONCE 04/20/21 19:00 04/20/21 19:01 DC Ondansetron HCl (Zofran) 4 mg 1X ONCE 04/20/21 19:00 04/20/21 19:01 DC Sodium Chloride 1,000 ml @ 1,000 mls/hr 1X ONCE 04/20/21 18:45 04/20/21 19:44 04/20/21 18:45 1,000 MLS/HR Allergies: Allergies: Allergies Coded Allergies Type Severity Reaction Last Updated Verified lisinopril Allergy Severe FACIAL SWELLING 11/05/19 Yes Penicillins Allergy Unknown 11/05/19 Yes metformin Allergy Unknown 11/05/19 Yes Physical Exam: PE: Constitutional: Well developed, well nourished, no acute distress, non-toxic appearance HENT: Normocephalic, atraumatic, clear rhinorrhea noted to right nare, TMs clear, bilateral external canals normal Eyes: PERRL, EOMI, conjunctiva normal, no discharge, no nystagmus Neck: Normal range of motion, supple Lungs & Thorax: No respiratory distress, equal chest rise and fall Abdomen: Soft, no tenderness Skin: Warm, dry, no erythema, no rash Back: No tenderness, no CVA tenderness Extremities: No tenderness, ROM intact, no edema Neurologic: Alert and oriented X 3, normal motor function, normal sensory function, no focal deficits noted Psychologic: Affect normal, judgment normal Current Patient Data: Labs: Laboratory Tests Test 04/20/21 19:03 POC Urine HCG, Qualitative hcg negative (Negative) Vital Signs: Vital Signs Date Time Temp Pulse Resp B/P (MAP) Pulse Ox O2 Delivery O2 Flow Rate FiO2 04/20/21 18:16 98.5 76 16 179/103 96 EKG: EKG: @1852 NSR at 75bpm, NO ST elevation, QRS 88ms, QT/QTc 432/485ms, t wave inversions V1-V2 Radiology/Procedures: Radiology/Procedures: [] Heart Score: C/O Chest Pain: N/A Course & Med Decision Making: Course & Med Decision Making Pertinent Lab studies reviewed. (See chart for details) Patient presents with report of dizziness, nausea, and shortness of breath which occurred while patient was at work. Concern for possible vertigo. TMs clear. Patient does report chronic sinus issues. Labs obtained and posted to chart. Chest x-ray without acute finding. Symptomatic treatment provided with interval improvement of symptoms. Patient stable for discharge with outpatient follow-up with PCP/ENT. ENT referral provided. Discussed findings and plan with patient, who acknowledges understanding and agreement. Sally Disclaimer: Sally Disclaimer: This electronic medical record was generated, in whole or in part, using a voice recognition dictation system. Departure Departure: Impression: Primary Impression: Vertigo Additional Impression: Urinary tract infection Qualified Codes: N30.00 - Acute cystitis without hematuria Disposition: HOME / SELF CARE / HOMELESS Condition: STABLE Referrals: ELIANA VERA (PCP) Patient Instructions: Urinary Tract Infection, [id number], Vertigo, [id number] Additional Instructions: Increase fluid hydration. Take over the counter Tylenol and/or Ibuprofen for pain or discomfort. Follow closely with ENT- Dr. Yolande Jensen (ENT) [address] [facility] [address] Scripts Cephalexin (CEPHALEXIN) 500 Mg Tablet 1 TAB PO TID for UTI for 7 Days, #21 TAB Prov: JAVIER DAWN DO 04/20/21 Meclizine Hcl (MECLIZINE HCL) 25 Mg Tablet 1 TAB PO TID PRN for DIZZINESS, #20 TAB Prov: JAVIER DAWN DO 04/20/21 Ondansetron (ONDANSETRON ODT) 4 Mg Tab.rapdis 1 TAB PO PRN Q6-8HRS PRN for NAUSEA, #16 TAB Prov: JAVIER DAWN DO 04/20/21 NIHSS - ED NIH Stroke Scale: NIH Stroke Scale Response (Comments) Value Level of Consciousness: 0 Alert/Responsive 0 LOC Questions: 0 Answers both correctly 0 LOC Commands: 0 Performs both tasks 0 Best Gaze: 0 Normal 0 Visual: 0 No visual loss 0 Facial Palsy: 0 Normal, symmetrical 0 Motor - Left Arm 0 No drift 0 Motor - Right Arm 0 No drift 0 Motor - Left Leg 0 No drift 0 Motor: Right Leg 0 No drift 0 Limb Ataxia: 0 Absent 0 Sensory: 0 No loss 0 Best Language: 0 Normal 0 Dysathria: 0 Normal 0 Extinction and Inattention: 0 Normal 0 Total 0 JAVIER DAWN DO Apr 20, 2021 19:07
[2021-04-20 19:21] LABS: BASO % 0 % (0-3); EOS # 0.1 x10^3/uL (0.0-0.7); EOS % 1 % (0-3); HEMOGLOBIN 13.3 g/dL (12.0-15.5); LYMPH # 1.9 x10^3/uL (1.0-4.8); LYMPH % 33 % (24-48); MEAN CORPUSCULAR HEMOGLOBIN 34 pg (25-35); MEAN CORPUSCULAR HGB CONC 34 g/dL (31-37); MEAN CORPUSCULAR VOLUME 99 fL (79-100); MONO # 0.5 x10^3/uL (0.0-1.1); MONO % 9 % (0-9); NEUT # 3.3 x10^3uL (1.8-7.7); NEUT % 57 % (31-73); PLATELET COUNT 84 x10^3/uL (140-400); RED BLOOD COUNT 3.95 x10^6/uL (3.50-5.40); RED CELL DISTRIBUTION WIDTH 13.6 % (11.5-14.5); WHITE BLOOD COUNT 5.9 x10^3/uL (4.0-11.0)
[2021-04-20 19:23] LABS: BILIRUBIN,URINE NEG (NEG); CLARITY,URINE HAZY; COLOR,URINE YELLOW; GLUCOSE,URINE >=1000 mg/dL (NEG); NITRITE,URINE POS (NEG); UROBILINOGEN,URINE 0.2 mg/dL (0.2 mg/dL)
[2021-04-20 19:24] LABS: BACTERIA,URINE MANY /HPF (0-FEW); SQUAMOUS EPITHELIAL CELL,UR MOD /LPF
[2021-04-20 19:25] LABS: CALCIUM 7.6 mg/dL (8.5-10.1); CREATININE 0.9 mg/dL (0.6-1.0); GFR 66.5; POTASSIUM 3.9 mmol/L (3.5-5.1)
[2021-04-20 19:40] LABS: TOTAL BILIRUBIN 0.6 mg/dL (0.2-1.0); TOTAL PROTEIN 6.1 g/dL (6.4-8.2)
[2021-04-20] MEDS ORDERED: KETOROLAC 15 MG/ML VIAL. IVP ONE (20:00)
[2021-04-20] MEDS ORDERED: IV NORMAL SALINE 50ML 50 ML ONE ×2 (20:01→20:02)
[2021-04-20] MEDS ORDERED: KETOROLAC 15 MG/ML VIAL. ONE (20:01)
[2021-04-20] MEDS ORDERED: cefTRIAXone SODIUM 1 GM VIAL ONE ×2 (20:01→20:02)
[2021-04-20] MEDS ORDERED: ONDA4TAB12 PO (20:11)
[2021-04-20] MEDS ORDERED: MECL-75 PO (20:11)
[2021-04-20] MEDS ORDERED: CEPH500T PO (20:12)
[2021-04-20 20:30] VITALS: BP 159/92
--- NOTE | 2021-04-21 07:28 | EKG ---
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
== END 2021-04-20 20:45 | disposition home or self-care (01) ==
LOC: ER 18:13
DX: N30.00 Acute cystitis without hematuria (principal); R42 Dizziness and giddiness; E11.9 Type 2 diabetes mellitus without complications; I10 Essential (primary) hypertension; Z90.49 Acquired absence of other specified parts of digestive tract; Z98.890 Other specified postprocedural states; Z88.8 Allergy status to other drugs, medicaments and biological substances; Z88.0 Allergy status to penicillin
CPT/HCPCS: 36415; 80053; 81001; 81025; 82553; 84484; 85025; 87086; 93005; 96361; 96365; 96375; 99284; J0696; J1100; J1885; J2405; J7030

== ENCOUNTER 2021-10-25 22:50 | Emergency (ER) | payer BC ==
[~2021-10-25] VITALS: Ht 162.6 cm; Wt 78.3 kg
[~2021-10-25 22:50] MED LIST changes: +MECL-75 PO
[2021-10-25 23:18] VITALS: BP 153/95
--- NOTE | 2021-10-25 23:28 | PHYS DOC ---
Past History Past Medical History: Diabetes, Hypertension Past Surgical History: Cholecystectomy, Additional Past Surgical Histo: ABSCESS ON LEG SX Smoking: Non-smoker Alcohol Use: None Drug Use: None Adult General Chief Complaint Chief Complaint: MULTIPLE COMPLAINTS HPI HPI Patient is a 51-year-old female with a past medical history of renal stones who presents with right-sided flank pain that started earlier today, 7 out of 10, sharp in nature with feelings of radiation from her back to her front, similar to her previous stone last year. States she did pass that one but it was fairly large but cannot remember the size. States she has some mild nausea but no vomiting. Denies any recent trauma, travels, illnesses, fevers, chest pain, shortness of breath. Denies any dysuria, hematuria, diarrhea or blood in the stool. Denies any vaginal complaints. Review of Systems Review of Systems Review of systems otherwise unremarkable except noted in HPI Allergies Allergies Allergies Coded Allergies Type Severity Reaction Last Updated Verified ciprofloxacin Allergy Severe anaphylaxsis 10/25/21 Yes lisinopril Allergy Severe FACIAL SWELLING 10/25/21 Yes Penicillins Allergy Unknown 10/25/21 Yes metformin Allergy Unknown 10/25/21 Yes Physical Exam Physical Exam Constitutional: Well developed, well nourished, no acute distress, non-toxic appearance. [] HENT: Normocephalic, atraumatic, bilateral external ears normal, oropharynx moist, no oral exudates, nose normal. [] Eyes: conjunctiva normal, no discharge. [] Cardiovascular:Heart rate regular rhythm, no murmur [] Lungs & Thorax: Bilateral breath sounds clear to auscultation [] Abdomen: soft, no tenderness, no masses, no pulsatile masses. [] Skin: Warm, dry, no erythema, no rash. [] Back: CVA tenderness. [] Extremities: No tenderness, no cyanosis, no clubbing, ROM intact, no edema. [] Neurologic: Alert and oriented X 3, no focal deficits noted. [] Psychologic: Affect normal, judgement normal, mood normal. [] EKG EKG [] Radiology/Procedures Radiology/Procedures [] Heart Score C/O Chest Pain: No Risk Factors: Risk Factors: DM, Current or recent (<one month) smoker, HTN, HLP, family history of CAD, obesity. Risk Scores: Risk Factors: DM, Current or recent (<one month) smoker, HTN, HLP, family history of CAD, obesity. Course & Med Decision Making Course & Med Decision Making Patient is a 51-year-old female who presents with right flank pain and concern for repeat renal stone Vital signs notable for hypertension. Physical exam noted above. Patient given nausea and pain medicine. Patient symptoms resolved with treatment. Urinalysis not concerning. CT notable for hepatic steatosis. Discussed all findings with patient. Discussed disease process. Discussed management strategies. Advised to follow-up in the morning with primary care physician to discuss this diagnosis and chronic management of this. Gave strict return precautions to the ED. Patient grateful, verbalized understanding and agreed with plan of discharge. [] Dragon Disclaimer Dragon Disclaimer This electronic medical record was generated, in whole or in part, using a voice recognition dictation system. Departure Departure: Impression: Primary Impression: Flank pain Additional Impression: Hepatic steatosis Disposition: HOME / SELF CARE / HOMELESS Condition: GOOD Referrals: ELIANA VERA (PCP) Patient Instructions: Flank Pain, Liver Disease Diet Additional Instructions: Thank you for coming into the emergency department tonight and allowing us to take care of you. Please read the attached information carefully to go over things we discussed. Please stay well-hydrated. Please begin a Tylenol and ibuprofen regimen as tolerated and as long as you are not allergic for symptom control. Please do not exceed 2 g of Tylenol daily or 2000 mg given your liver disease. Please stay away from alcohol as this could exacerbate and worsen your liver disease. Is very important you adjust your diet as discussed hopes of reversing this process. Please follow-up in the morning with your primary care physician update on your ED visit and set up a follow-up visit. Please come back with new or concerning symptoms as discussed. Problem Qualifiers CADENCE GONZALEZ MD Oct 25, 2021 23:28
[2021-10-25] MEDS ORDERED: ONDANSETRON ODT 4 MG TAB.RAPDIS PO ONE (23:45)
[2021-10-25] MEDS ORDERED: KETOROLAC 30 MG/ML VIAL. IM ONE (23:45)
--- NOTE | 2021-10-26 00:28 | RAD ---
CT ABDOMEN+PELVIS WO INDICATION: Right flank pain Hx: Cholecystectomy EXAM: Noncontrast CT of the abdomen and pelvis. Coronal and sagittal reformatted images were perform ed. PQRS compliance statement: One or more of the following individualized dose reduction techniques were utilized for this examinat ion: 1. Automated exposure control 2. Adjustment of the mA and/or kV according to patient size 3. Use of iterative reconstruction technique COMPARISON: 01/23/2021 FINDINGS: No free air, free fluid, or fluid collection. Lower chest: The visualized lower lungs are aerated. No pleural or pericardial effusion. ABDOMEN: Liver: Liver measures 20 cm craniocaudad. Hepatic steatosis Gallbladder and biliary: Cholecystectomy. Normal caliber bile ducts. Spleen: Normal spleen. Pancreas: The noncontrast pancreas is homogeneous in attenuation without peripancreatic inflammatory changes. Adrenal glands: Normal adrenal glands. Kidneys and ureters: No opaque urinary calculi. Normal kidneys and ureters. GI tract: The stomach is decompressed and poorly evaluated. Normal caliber small bowel and colon. Nor mal appendix. Vascular structures: Normal caliber abdominal aorta. Mild aortoiliac atherosclerotic disease. Lymph nodes: No lymphadenopathy in the abdomen or pelvis. PELVIS: Genitourinary system: Urinary bladder is decompressed. Uterus is present. Low-attenuation lesions in the region of the cervix, probably nabothian cysts SKELETAL STRUCTURES AND SOFT TISSUES: No fracture or destructive lesion in the visualized skeleton. F at-containing supraumbilical hernia. IMPRESSION: 1. No acute findings. No hydronephrosis or opaque urinary calculi. 2. Hepatomegaly and hepatic steatosis. Electronically signed by: Gordo Chatterjee MD (10/26/2021 12:25 AM) [facility]
[2021-10-26 00:37] LABS: BACTERIA,URINE FEW /HPF (0-FEW); CLARITY,URINE CLEAR; COLOR,URINE YELLOW; GLUCOSE,URINE 500 mg/dL (NEG); NITRITE,URINE NEG (NEG); SQUAMOUS EPITHELIAL CELL,UR FEW /LPF; UROBILINOGEN,URINE 0.2 mg/dL (0.2 mg/dL); YEAST,URINE PRESENT /HPF
[2021-10-26] MEDS ORDERED: ACETAMINOPHEN 500 MG TABLET PO ONE (01:00)
[2021-10-26] MEDS ORDERED: diphenhydrAMINE HCL 25 MG CAPSULE PO ONE (01:00)
== END 2021-10-26 00:57 | disposition home or self-care (01) ==
LOC: ER 22:50
DX: K76.0 Fatty (change of) liver, not elsewhere classified (principal); E11.9 Type 2 diabetes mellitus without complications; I10 Essential (primary) hypertension; Z90.49 Acquired absence of other specified parts of digestive tract; Z88.0 Allergy status to penicillin; Z88.1 Allergy status to other antibiotic agents; Z88.8 Allergy status to other drugs, medicaments and biological substances
CPT/HCPCS: 74176; 81001; 81025; 96372; 99284; J1885; Q0162